=== PATIENT | female | born 1985 | race Caucasian/White ===

== ENCOUNTER 2017-12-11 17:57 | Emergency (ER) | payer MEDICAID ==
[2017-12-11 19:22] LABS: ADD MAN DIFF? NO
[2017-12-11 19:25] LABS: BASOPHIL # 0.1 10^3/ul (0.0-0.1); BASOPHILS % 0.4 % (0.0-2.0); EOSINOPHILS # 0.4 10^3/ul (0.0-0.5); EOSINOPHILS % 2.7 % (0.0-7.0); HEMATOCRIT 31.1 % (37.0-47.0); HEMOGLOBIN 11.2 g/dl (12.0-16.0); LYMPHOCYTES # 2.5 10^3/ul (0.8-2.9); LYMPHOCYTES % 17.8 % (15.0-51.0); MEAN CORPUSCULAR HEMOGLOBIN 30.5 pg (29.0-33.0); MEAN CORPUSCULAR VOLUME 84.7 fl (82.0-101.0); MEAN PLATELET VOLUME 9.9 fl (7.4-10.4); MONOCYTE # 0.8 10^3/ul (0.3-0.9); MONOCYTES % 5.8 % (0.0-11.0); NEUTROPHIL # 10.2 10^3/ul (1.6-7.5); NEUTROPHILS % 72.9 % (39.0-77.0); PLATELET COUNT 269 10^3/UL (140-415); RED BLOOD COUNT 3.67 10^6/ul (4.20-5.40); RED CELL DISTRIBUTION WIDTH 12.9 % (11.5-14.5)
[2017-12-11 19:32] LABS: ADD UMIC YES; UR ASCORBIC ACID NEGATIVE (NEGATIVE); UR BILIRUBIN (Dip) NEGATIVE (NEGATIVE); UR BLOOD (Dip) 3+ mg/dL (NEGATIVE); UR CLARITY CLEAR (CLEAR); UR COLOR YELLOW (YELLOW); UR GLUCOSE (Dip) NEGATIVE (NEGATIVE); UR KETONES (Dip) NEGATIVE (NEGATIVE); UR LEUKOCYTE ESTERASE (Dip) NEGATIVE Leu/ul (NEGATIVE); UR NITRITE (Dip) NEGATIVE (NEGATIVE); UR RBC 14 /HPF (0-5); UR SPECIFIC GRAVITY (Dip) 1.009 (1.003-1.030); UR TOTAL PROTEIN (Dip) NEGATIVE (NEGATIVE); UR UROBILINOGEN (Dip) NEGATIVE (NEGATIVE); UR WBC 1 /HPF (0-5)
[2017-12-11] MEDS: AMOXICILLIN 500 MG CAP PO (19:41)
[2017-12-11] MEDS: ACETAMINOPHEN 325 MG TAB PO (19:41)
[2017-12-11 19:45] LABS: ALANINE AMINOTRANSFERASE 84 IU/L (13-69); ALBUMIN 4.5 g/dl (3.3-4.9); ALKALINE PHOSPHATASE 67 IU/L (42-121); ANION GAP 18 (8-16); ASPARTATE AMINO TRANSFERASE 49 IU/L (15-46); BLOOD UREA NITROGEN 7 mg/dl (7-20); CALCIUM 9.5 mg/dl (8.4-10.2); CARBON DIOXIDE 23 mmol/L (21-31); CHLORIDE 104 mmol/L (97-110); CREATININE 0.55 mg/dl (0.44-1.00); GLUCOSE 99 mg/dl (70-220); POTASSIUM 3.5 mmol/L (3.5-5.1); SODIUM 141 mmol/L (135-144); TOTAL PROTEIN 7.7 g/dl (6.1-8.1)
[2017-12-11 19:47] LABS: LIPASE 86 U/L (23-300)
== END 2017-12-11 20:41 | disposition home or self-care (01) ==
LOC: E/R 17:57 → FTE 20:41
DX: O99.89 Other specified diseases and conditions complicating pregnancy, childbirth and the puerperium (principal); H66.92 Otitis media, unspecified, left ear; Z3A.12 12 weeks gestation of pregnancy
CPT/HCPCS: 76805; 80053; 81001; 83690; 84702; 85025; 99284-25

== ENCOUNTER 2018-06-14 13:02 | Outpatient (CLI) | payer MEDICAID | END 2018-06-14 15:10 | disposition home or self-care (01) | LOC: OBT 13:02 → L-D 13:04 → OBT 15:10 | DX: O24.419 Gestational diabetes mellitus in pregnancy, unspecified control (principal); O36.8330 Maternal care for abnormalities of the fetal heart rate or rhythm, third trimester, not applicable or unspecified; Z3A.38 38 weeks gestation of pregnancy | CPT/HCPCS: Z7500 ==

== ENCOUNTER 2018-06-15 19:37 | Inpatient (IN) | payer MEDICAID ==
[2018-06-15] MEDS ORDERED: OXYTOCIN 30 UNITS/LR 500 ML IV (22:00)
[2018-06-15] MEDS ORDERED: IBUPROFEN 600 MG TAB PO (22:00)
[2018-06-15] MEDS ORDERED: LIDOCAINE 1% (MPF) 30 ML INJ INJ (22:00)
[2018-06-15] MEDS ORDERED: CARBOPROST 250 MCG INJ IM (22:00)
[2018-06-15] MEDS: LACTATED RINGER'S 1,000 ML IV* (23:29)
[2018-06-16 00:09] LABS: ADD MAN DIFF? NO
[2018-06-16 00:11] LABS: BASOPHIL # 0.1 10^3/ul (0.0-0.1); BASOPHILS % 0.6 % (0.0-2.0); EOSINOPHILS # 0.5 10^3/ul (0.0-0.5); EOSINOPHILS % 4.9 % (0.0-7.0); HEMOGLOBIN 11.1 g/dl (12.0-16.0); LYMPHOCYTES # 2.5 10^3/ul (0.8-2.9); LYMPHOCYTES % 23.9 % (15.0-51.0); MEAN CORPUSCULAR HGB CONC 34.7 g/dl (32.0-37.0); MEAN CORPUSCULAR VOLUME 89.4 fl (82.0-101.0); MEAN PLATELET VOLUME 10.6 fl (7.4-10.4); MONOCYTE # 0.7 10^3/ul (0.3-0.9); MONOCYTES % 6.4 % (0.0-11.0); NEUTROPHIL # 6.8 10^3/ul (1.6-7.5); NEUTROPHILS % 63.8 % (39.0-77.0); PLATELET COUNT 272 10^3/UL (140-415); RED BLOOD COUNT 3.58 10^6/ul (4.20-5.40); RED CELL DISTRIBUTION WIDTH 13.3 % (11.5-14.5)
[2018-06-16 00:11] LABS: WHITE BLOOD COUNT 10.6 10^3/ul (4.8-10.8)
[2018-06-16 00:30] LABS: INR 0.91; PROTIME 12.3 Sec (11.9-14.9)
[2018-06-16 00:31] LABS: ALANINE AMINOTRANSFERASE 25 IU/L (13-69); ALBUMIN 3.1 g/dl (3.3-4.9); ALBUMIN/GLOBULIN RATIO 1.03; ALKALINE PHOSPHATASE 131 IU/L (42-121); ANION GAP 11 (8-16); ASPARTATE AMINO TRANSFERASE 23 IU/L (15-46); BILIRUBIN,INDIRECT 0.3 mg/dl (0-1.1); BILIRUBIN,TOTAL 0.3 mg/dl (0.2-1.3); BLOOD UREA NITROGEN 8 mg/dl (7-20); CALCIUM 9.2 mg/dl (8.4-10.2); CARBON DIOXIDE 20 mmol/L (21-31); CHLORIDE 109 mmol/L (97-110); CREATININE 0.42 mg/dl (0.44-1.00); GLUCOSE 87 mg/dl (70-220); PARTIAL THROMBOPLASTIN TIME 27.2 Sec (23.0-35.0); POTASSIUM 3.4 mmol/L (3.5-5.1); SODIUM 137 mmol/L (135-144); TOTAL PROTEIN 6.1 g/dl (6.1-8.1)
[2018-06-16] MEDS: OXYTOCIN 30 UNITS/LR 500 ML IV ×2 (04:58→20:31)
[2018-06-16] MEDS: LACTATED RINGER'S 1,000 ML IV* ×3 (05:31→17:00)
[2018-06-16] MEDS ORDERED: NALOXONE (0.4 MG/ML) INJ IV (13:00)
[2018-06-16] MEDS ORDERED: DIPHENHYDRAMINE 50 MG INJ IV ×2 (13:00→21:30)
[2018-06-16] MEDS: LACTATED RINGER'S 1,000 ML IV (13:01)
[2018-06-16] MEDS: FENTAnyl 2MCG/ML-ROPIV 0.2% 100 ML BAG EPI (14:05)
[2018-06-16 16:51] LABS: RAPID PLASMA REAGIN NONREACTIVE (NR)
[2018-06-16] MEDS: DEXTROSE 5%-LR 1,000 ML IV ×2 (17:42→21:22)
[2018-06-16] MEDS: METHYLERGONOVINE 0.2 MG INJ IM (19:54)
[2018-06-16] MEDS: MISOPROSTOL 200 MCG TAB PR ×2 (19:55→20:20)
[2018-06-16] MEDS ORDERED: METOCLOPRAMIDE 10 MG INJ (19:58)
[2018-06-16] MEDS: ONDANSETRON 4 MG INJ IV (20:00)
[2018-06-16] MEDS: CEFAZOLIN 2 GM/50 ML (PMX) 50 ML IVPB (20:38)
[2018-06-16] MEDS ORDERED: ONDANSETRON 4 MG INJ IV (21:30)
[2018-06-16] MEDS ORDERED: ACETAMINOPHEN 325 MG TAB PO (21:30)
[2018-06-16] MEDS ORDERED: MISOPROSTOL 200 MCG TAB PR (21:30)
[2018-06-16] MEDS ORDERED: LANOLIN 7 GM TUBE TOP (21:30)
[2018-06-16] MEDS ORDERED: OXYTOCIN 30 UNITS/LR 500 ML IV (21:30)
[2018-06-16] MEDS ORDERED: ZOLPIDEM 5 MG TAB PO (21:30)
[2018-06-16] MEDS ORDERED: CARBOPROST 250 MCG INJ IM (21:30)
[2018-06-16] MEDS ORDERED: METHYLERGONOVINE 0.2 MG INJ IM (21:30)
[2018-06-16] MEDS ORDERED: OXYCODONE/ASPIRIN (4.88/325) TAB PO (21:30)
[2018-06-16] MEDS: IBUPROFEN 600 MG TAB PO (23:51)
[2018-06-16] MEDS: WITCH HAZEL/GLYCERIN PAD PR (23:52)
[2018-06-16] MEDS: BENZOCAINE 20% 56 ML SPRAY TOP (23:52)
[2018-06-16] MEDS: DIBUCAINE 1% 30 GM OINT PR (23:52)
[2018-06-17] MEDS: LACTATED RINGER'S 1,000 ML IV* ×2 (01:07→05:22)
[2018-06-17] MEDS: DEXTROSE 5%-LR 1,000 ML IV (05:22)
[2018-06-17] MEDS: IBUPROFEN 600 MG TAB PO ×3 (06:04→17:51)
[2018-06-17 07:42] LABS: ADD MAN DIFF? NO
[2018-06-17 07:46] LABS: WHITE BLOOD COUNT 19.4 10^3/ul (4.8-10.8)
[2018-06-17 07:46] LABS: BASOPHIL # 0.1 10^3/ul (0.0-0.1); BASOPHILS % 0.3 % (0.0-2.0); EOSINOPHILS # 0.2 10^3/ul (0.0-0.5); EOSINOPHILS % 0.8 % (0.0-7.0); HEMOGLOBIN 8.8 g/dl (12.0-16.0); LYMPHOCYTES # 2.5 10^3/ul (0.8-2.9); MEAN CORPUSCULAR HEMOGLOBIN 30.9 pg (29.0-33.0); MEAN CORPUSCULAR HGB CONC 33.8 g/dl (32.0-37.0); MEAN CORPUSCULAR VOLUME 91.2 fl (82.0-101.0); MEAN PLATELET VOLUME 10.6 fl (7.4-10.4); MONOCYTE # 1.4 10^3/ul (0.3-0.9); MONOCYTES % 7.4 % (0.0-11.0); NEUTROPHIL # 15.2 10^3/ul (1.6-7.5); NEUTROPHILS % 78.1 % (39.0-77.0); PLATELET COUNT 230 10^3/UL (140-415); RED BLOOD COUNT 2.85 10^6/ul (4.20-5.40); RED CELL DISTRIBUTION WIDTH 13.2 % (11.5-14.5)
[2018-06-17] MEDS: SENNA/DOCUSATE NA (8.6MG/50MG) TAB PO (21:42)
[2018-06-18] MEDS: IBUPROFEN 600 MG TAB PO ×3 (00:12→12:00)
[2018-06-18] MEDS: DIPHTH/TET/ACEL PERTUSS (ADULT) 0.5 ML VIAL IM* (09:00)
[2018-06-18] MEDS: MEASLES,MUMPS,RUBELLA VACCINE INJ SC* (09:00)
[2018-06-18 12:16] LABS: ADD MAN DIFF? NO
[2018-06-18 12:20] LABS: WHITE BLOOD COUNT 12.9 10^3/ul (4.8-10.8)
[2018-06-18 12:21] LABS: BASOPHIL # 0.1 10^3/ul (0.0-0.1); BASOPHILS % 0.5 % (0.0-2.0); EOSINOPHILS # 0.5 10^3/ul (0.0-0.5); EOSINOPHILS % 3.7 % (0.0-7.0); HEMATOCRIT 28.2 % (37.0-47.0); HEMOGLOBIN 9.5 g/dl (12.0-16.0); LYMPHOCYTES # 2.4 10^3/ul (0.8-2.9); LYMPHOCYTES % 18.6 % (15.0-51.0); MEAN CORPUSCULAR HEMOGLOBIN 31.3 pg (29.0-33.0); MEAN CORPUSCULAR HGB CONC 33.7 g/dl (32.0-37.0); MEAN CORPUSCULAR VOLUME 92.8 fl (82.0-101.0); MEAN PLATELET VOLUME 10.6 fl (7.4-10.4); MONOCYTE # 0.8 10^3/ul (0.3-0.9); MONOCYTES % 6.3 % (0.0-11.0); NEUTROPHIL # 9.1 10^3/ul (1.6-7.5); NEUTROPHILS % 70.1 % (39.0-77.0); PLATELET COUNT 268 10^3/UL (140-415); RED BLOOD COUNT 3.04 10^6/ul (4.20-5.40); RED CELL DISTRIBUTION WIDTH 13.6 % (11.5-14.5)
== END 2018-06-18 18:02 | disposition home or self-care (01) | DRG 806 ==
LOC: OBT 19:37 → L-D 19:38 → PP1 06-16 22:55 → OBT 21:40 → L-D 21:40
PROC: 10E0XZZ Delivery of Products of Conception, External Approach (ICD-10-PCS; principal; 2018-06-16)
PROC: 0W8NXZZ Division of Female Perineum, External Approach (ICD-10-PCS; 2018-06-16)
DX: O24.420 Gestational diabetes mellitus in childbirth, diet controlled (principal); O36.63X0 Maternal care for excessive fetal growth, third trimester, not applicable or unspecified; O72.1 Other immediate postpartum hemorrhage; Z37.0 Single live birth; Z3A.38 38 weeks gestation of pregnancy
CPT/HCPCS: 62319; 76815; 76818; 80053; 82962; 85025; 85610; 85730; 86592; 86850; 86900; 86901; 90715; 99464